=== PATIENT | female | born 1975 | race Caucasian/White ===

== ENCOUNTER 2021-01-15 19:50 | Observation (INO) ==
[2021-01-15] MEDS ORDERED: 0.9 % Sodium Chloride 1,000 ML IVC SCH (22:45)
[2021-01-15] MEDS ORDERED: CefOXitin 1,000 MG VIAL ONE ×2 (22:57→23:24)
[2021-01-15] MEDS ORDERED: Lidocaine -MPF 4% 5 ML AMPUL ONE (23:08)
[2021-01-15] MEDS ORDERED: *HR* Rocuronium Bromide 50 MG/5 ML VIAL ONE (23:08)
[2021-01-15] MEDS ORDERED: *HR* FentaNYL (PF) 100 MCG/2 ML VIAL ONE (23:08)
[2021-01-15] MEDS ORDERED: *HR* Succinylcholine 200 MG/10 ML VIAL IVP ONE (23:08)
[2021-01-15] MEDS ORDERED: Lidocaine -MPF 2% 2 ML VIAL ONE (23:08)
[2021-01-15] MEDS ORDERED: *HR* Propofol 200 MG/20 ML VIAL IVP ONE (23:09)
[2021-01-15] MEDS ORDERED: *HR* Midazolam HCl 2 MG/2 ML VIAL ONE (23:09)
[2021-01-15] MEDS ORDERED: Ondansetron 4 MG/2 ML VIAL ONE (23:09)
[2021-01-15] MEDS ORDERED: Dexamethasone 4 MG/ML VIAL ONE (23:09)
[2021-01-15] MEDS ORDERED: CefOXitin 2,000 MG VIAL ONE (23:26)
[2021-01-15] MEDS ORDERED: Famotidine 20 MG/2 ML VIAL ONE (23:44)
[2021-01-15] MEDS ORDERED: Acetaminophen IV 1,000 MG/100 ML BAG IVPB ONE (23:44)
[2021-01-16] MEDS ORDERED: Scopolamine Patch 1.5 MG PATCH.TD72 TD PRN (00:27)
[2021-01-16] MEDS ORDERED: *HR* HYDROmorphone (PF) 1 MG/ML SYRINGE IVP PRN (00:27)
[2021-01-16] MEDS ORDERED: *HR* HYDROmorphone 2 MG TABLET PO PRN (00:27)
[2021-01-16] MEDS ORDERED: *HR* OxyCODONE Immed Rel 5 MG TABLET PO PRN (00:27)
[2021-01-16] MEDS ORDERED: *HR* Labetalol 20 MG/4 ML SYRINGE IVP PRN (00:27)
[2021-01-16] MEDS ORDERED: Ketorolac 30 MG/ML VIAL ONE (00:44)
[2021-01-16] MEDS ORDERED: *HR* HYDROMORPHONE 2 MG/ML VIAL ONE (00:44)
[2021-01-16] MEDS ORDERED: Sugammadex Sodium 200 MG/2 ML VIAL IV ONE (00:44)
[2021-01-16] MEDS: 0.9 % Sodium Chloride 1,000 ML IVC SCH ×2 (02:32→15:54)
[2021-01-16] MEDS: cefOXitin 2,000 MG in Water for inj. (sterile) 20 ML IVP SCH ×3 (07:55→23:26)
[2021-01-16] MEDS: *HR* OxyCODONE/APAP 5/325 TABLET PO PRN (13:32)
[2021-01-16] MEDS: Psyllium 1 PACKET POWD.PACK PO SCH ×2 (15:52→20:17)
[2021-01-17] MEDS: *HR* OxyCODONE/APAP 5/325 TABLET PO PRN ×2 (02:41→03:29)
[2021-01-17] MEDS: 0.9 % Sodium Chloride 1,000 ML IVC SCH ×2 (05:02→21:43)
[2021-01-17] MEDS: Psyllium 1 PACKET POWD.PACK PO SCH ×4 (07:52→21:33)
[2021-01-17] MEDS: cefOXitin 2,000 MG in Water for inj. (sterile) 20 ML IVP SCH (08:15)
[2021-01-17] MEDS: Acetaminophen IV 1,000 MG/100 ML BAG IVPB SCH ×4 (09:47→23:19)
[2021-01-17] MEDS: Ketorolac 30 MG/ML VIAL IVP SCH ×4 (09:47→23:18)
[2021-01-17 10:18] LABS: Basophils % 0.2 %; Eosinophils % 0.2 %; Hematocrit 41.5 % (35.3-44.9); Hemoglobin 13.2 g/dL (11.5-15.4); Immature Granulocytes % 0.6 % (0-4); Lymphocytes # 1.4 K/mcL (0.6-4.6); Lymphocytes % 7.7 %; Mean Corpuscular HGB Conc 31.8 g/dL (31.6-35.5); Mean Corpuscular Volume 103.8 fL (83.0-100.0); Mean Platelet Volume 9.8 fL (9.4-12.4); Monocytes # 0.4 K/mcL (0.0-1.3); Monocytes % 2.4 %; Neutrophils # 16.1 K/mcL (1.6-8.9); Platelet Count 183 K/mcL (140-400); Red Cell Distribution Width 11.7 % (11.5-14.5); Segmented Neutrophils % 88.9 %; White Blood Count 18.1 K/mcL (4.3-11.1)
[2021-01-17 11:09] LABS: Alanine Aminotransferase 7 Units/L (7-52); Albumin 3.9 g/dL (3.5-5.7); Albumin/Globulin Ratio 1.5 (1.1-2.2); Alkaline Phosphatase 87 Units/L (34-104); Aspartate Amino Transferase 13 Units/L (13-39); BUN/Creatinine Ratio 7 (6-26); Blood Urea Nitrogen 5 mg/dL (6-20); Calcium 8.8 mg/dL (8.6-10.3); Carbon Dioxide 22 mEq/L (23-29); Chloride 105 mEq/L (98-107); Globulin 2.6 g/dL (2.4-3.5); Glucose 97 mg/dL (70-105); Osmolality,Calculated 279 (280-300); Potassium 3.6 mEq/L (3.5-5.1); Sodium 136 mEq/L (136-145); Total Protein 6.5 g/dL (6.4-8.9); eGFR For African Americans > 60 (> 60); eGFR For Non-African Americans > 60 (> 60)
[2021-01-17] MEDS: Ondansetron 4 MG/2 ML VIAL IVP PRN ×2 (15:19→22:06)
[2021-01-17] MEDS: Piperacillin/Tazobactam 3.375 GM in 0.9 % Sodium Chloride Mini Bag 100 ML IVPB SCH ×2 (17:39→23:19)
[2021-01-18] MEDS: Acetaminophen IV 1,000 MG/100 ML BAG IVPB SCH (05:32)
[2021-01-18] MEDS: Ketorolac 30 MG/ML VIAL IVP SCH (05:32)
[2021-01-18 07:24] LABS: Hematocrit 30.6 % (35.3-44.9); Mean Corpuscular HGB Conc 33.3 g/dL (31.6-35.5); Mean Corpuscular Hemoglobin 33.2 pg (28.0-33.3); Mean Corpuscular Volume 99.7 fL (83.0-100.0); Mean Platelet Volume 9.2 fL (9.4-12.4); Platelet Count 202 K/mcL (140-400); Red Blood Count 3.07 M/mcL (3.82-4.97); Red Cell Distribution Width 11.9 % (11.5-14.5); White Blood Count 15.5 K/mcL (4.3-11.1)
[2021-01-18 07:29] LABS: Hemoglobin 10.2 g/dL (11.5-15.4)
[2021-01-18 07:39] VITALS: BP 102/70
[2021-01-18] MEDS: Piperacillin/Tazobactam 3.375 GM in 0.9 % Sodium Chloride Mini Bag 100 ML IVPB SCH (09:26)
[2021-01-18] MEDS: Psyllium 1 PACKET POWD.PACK PO SCH (09:28)
[2021-01-18] MEDS: 0.9 % Sodium Chloride 1,000 ML IVC SCH (09:28)
== END 2021-01-18 12:47 | disposition home or self-care (01) ==
LOC: 3ANU
PROVIDERS: ADMIT Surgery; ATTEND Surgery